=== PATIENT | female | born 1950 | race Hispanic/Latino ===

== ENCOUNTER 2023-12-08 09:20 | Emergency (ER) | payer OTHER ==
[2023-12-08] MEDS ORDERED: LIDOCAINE 2% W/EPI 1:200,000 MPF 20 ML VIAL IM ONE (09:42)
--- NOTE | 2023-12-08 10:06 | EDPHYS ---
Physician Documentation [facility] Name: Negin Brown Age: 73 yrs Sex: Female : 1950 Arrival Date: 12/08/2023 Time: 09:20 Bed 15 Private MD: ED Physician Chemo Cedeno HPI: 12/07 10:07 This 73 yrs old Female presents to ER via Ambulatory with complaints of Boil. ms3 10:07 73-year-old female past medical history of asthma, diabetes, hyperlipidemia, ms3 hypertension, kidney stones presents to the emergency department for painful lump on her back. Patient's niece states patient has had the bump since childhood. Patient states yesterday the bump became painful. Patient states the pain sitting is mild and becomes worse when laying on her back.. Historical: - Allergies: 09:46 No Known Allergies; ap3 - PMHx: 09:46 Asthma; Diabetes - NIDDM; Hyperlipidemia; Hypertension; Kidney stones; lithotripsy; ap3 - PSHx: 09:46 Cholecystectomy; hernia repair; ap3 - Infectious Disease History:: Denies. - Social history:: Smoking status: Patient denies any tobacco usage or history of. ROS: 10:07 Constitutional: Negative for fever, and chills. Neck: Negative for injury, pain, and ms3 swelling, Cardiovascular: Negative for chest pain, and palpitations. Respiratory: Negative for shortness of breath, cough, wheezing, and pleuritic chest pain, Abdomen/GI: Negative for abdominal pain, nausea, vomiting, diarrhea, and constipation, 10:07 Skin: Positive for abscess, Exam: 10:07 Constitutional: This is a well developed, well nourished patient who is awake, alert, ms3 and in no acute distress. Neck: Trachea midline, no cervical lymphadenopathy. Supple, full range of motion without nuchal rigidity, or vertebral point tenderness. No Meningismus. Chest/axilla: Normal chest wall appearance and motion. Nontender with no deformity. Cardiovascular: Regular rate and rhythm with a normal S1 and S2. No gallops, murmurs, or rubs. Normal PMI, no JVD. No pulse deficits. Respiratory: Lungs have equal breath sounds bilaterally, clear to auscultation and percussion. No rales, rhonchi or wheezes noted. No increased work of breathing, no retractions or nasal flaring. Abdomen/GI: Soft, non-tender, with normal bowel sounds. No distension or tympany. No guarding or rebound. No evidence of tenderness throughout. 10:07 Skin: abscess, that is large, of the back, with fluctuance, that is marked, Vital Signs: 09:41 BP 155 / 78; Pulse 80; Resp 17; Temp 97.8; Pulse Ox 98% on R/A; ap3 MDM: 10:05 Patient medically screened. ms3 10:07 Differential diagnosis: abscess, cellulitis, Sebaceous cyst. Data reviewed: vital ms3 signs, nurses notes, and as a result, I will discharge patient. I considered the following discharge prescriptions or medication management in the emergency department Patient given prescription for Keflex. Care significantly affected by the following chronic conditions: Diabetes, Hypertension. Counseling: I had a detailed discussion with the patient and/or guardian regarding the historical points, exam findings, and any diagnostic results supporting the discharge/admit diagnosis, the need for outpatient follow up, to return to the emergency department if symptoms worsen or persist or if there are any questions or concerns that arise at home. Response to treatment: the patient's symptoms have markedly improved after treatment, and as a result, I will discharge patient. Special discussion: I discussed with the patient/guardian in detail that at this point there is no indication for admission to the hospital. It is understood, however, that if the symptoms persist or worsen the patient needs to return immediately for re-evaluation. ED course: Discussed physical exam findings with patient. Incision and drainage performed without complications. Patient to follow-up with Dr. Booth in 2 to 3 days for reevaluation. Patient understands and agrees with plan. All questions were answered. Return precautions discussed include worsening symptoms, or any other concerns.. Administered Medications: No medications were administered Disposition Summary: 12/08/23 10:05 Discharge Ordered Notes: Location: Home ms3 Condition: Stable ms3 Diagnosis - Sebaceous cyst - infected ms3 Followup: ms3 - With: Navin Booth MD - When: 2 - 3 days - Reason: Recheck today's complaints Discharge Instructions: - Discharge Summary Sheet ms3 - Incision and Drainage, Care After ms3 Forms: - Medication Reconciliation Form ms3 - Antibiotic Education ms3 - Prescription Opioid Use ms3 - Patient Portal Instructions ms3 - Leadership Thank You Letter ms3 Prescriptions: - Cephalexin 250 mg Oral Capsule - take 1 capsule ORAL route every 6 hours for 10 days; 40 capsule; Refills: 0, ms3 Product Selection Permitted Signatures: Fannie Oglesby, RN RN ap3 Chemo Cedeno DO DO ms3
--- NOTE | 2023-12-08 10:06 | ER ---
Nurse's Notes [facility] Name: Negin Brown Age: 73 yrs Sex: Female : 1950 Arrival Date: 12/08/2023 Time: 09:20 Bed 15 Private MD: Diagnosis: Sebaceous cyst-infected Presentation: 12/07 09:41 Chief complaint: patient has a "lump" on her back that she has had since childhood, ap3 however it has become painful yesterday when she puts pressure on it. Coronavirus screen: At this time, the client does not indicate any symptoms associated with coronavirus-19. Ebola Screen: No symptoms or risks identified at this time. Initial Sepsis Screen: Does the patient meet any 2 criteria? No. Patient's initial sepsis screen is negative. Does the patient have a suspected source of infection? No. Patient's initial sepsis screen is negative. Risk Assessment: Do you want to hurt yourself or someone else? Patient reports no desire to harm self or others. Onset of symptoms is unknown. 09:41 Method Of Arrival: Ambulatory ap3 09:41 Acuity: JONI 3 ap3 Triage Assessment: 09:47 General: Appears in no apparent distress. Behavior is calm, cooperative, appropriate ap3 for age. Pain: Complains of pain in upper back Pain began 1 day ago. Neuro: Level of Consciousness is awake, alert, obeys commands, Oriented to person, place, time, situation, Speech is normal. Cardiovascular: Patient's skin is warm and dry. Respiratory: Airway is patent Respiratory effort is even, unlabored, Respiratory pattern is regular, symmetrical. Historical: - Allergies: 09:46 No Known Allergies; ap3 - PMHx: 09:46 Asthma; Diabetes - NIDDM; Hyperlipidemia; Hypertension; Kidney stones; lithotripsy; ap3 - PSHx: 09:46 Cholecystectomy; hernia repair; ap3 - Infectious Disease History:: Denies. - Social history:: Smoking status: Patient denies any tobacco usage or history of. Screenin:48 Abuse screen: Denies threats or abuse. Nutritional screening: No deficits noted. ap3 Tuberculosis screening: No symptoms or risk factors identified. 09:50 [facility] ED Fall Risk Assessment (Adult) History of falling in the last 3 months, nj1 including since admission No falls in past 3 months (0 pts) Confusion or Disorientation No (0 pts) Intoxicated or Sedated No (0 pts) Impaired Gait Yes (1 pt) Mobility Assist Device Used Yes (1 pt) Altered Elimination No (0 pt) Score/Fall Risk Level 0 - 2 = Low Risk Oriented to surroundings, Maintained a safe environment, Assessed \\T\\ reinforced patient's understanding of fall precautions, Hourly rounding (assess needs \\T\\ fall precautionary measures) done, Used ambulatory aids as needed (educated on \\T\\ assisted with). Assessment: 09:50 General: Appears in no apparent distress. uncomfortable, Behavior is calm, cooperative, nj1 appropriate for age. Pain: Complains of pain in back Pain at worst was 9 out of 10 on a pain scale. 09:50 Neuro: Level of Consciousness is awake, alert, obeys commands, Oriented to person, nj1 place, time, situation. Cardiovascular: Patient's skin is warm and dry. Respiratory: Airway is patent Respiratory effort is even, unlabored. Derm: Skin has lesions on Lump on the upper back. Vital Signs: 09:41 BP 155 / 78; Pulse 80; Resp 17; Temp 97.8; Pulse Ox 98% on R/A; ap3 ED Course: 09:29 Patient arrived in ED. mg5 09:30 Chemo Cedeno DO is Attending Physician. ms3 09:34 Sophia Sanchez, PAUL is Primary Nurse. nj1 09:46 Triage completed. ap3 09:48 Arm band placed on right wrist. ap3 09:50 Patient has correct armband on for positive identification. Placed in gown. Bed in low nj1 position. Call light in reach. Adult w/ patient. 09:50 Provided Education on: call light, fall precautions. nj1 10:05 Navin Booth MD is Referral Physician. ms3 10:20 Assist provider with I \\T\\ D: of an abscess on Upper back Set up I\\T\\D tray. Performed by nj 1 Chemo Cedeno DO Wound packed. iodoform gauze, Dressing with 4X4s, tape Patient tolerated well. 10:21 Patient did not have IV access during this emergency room visit. nj1 Administered Medications: No medications were administered Medication: 10:22 VIS not applicable for this client. nj1 Outcome: 10:05 Discharge ordered by . ms3 10:21 Discharged to home ambulatory, nj1 10:21 Condition: stable 10:21 Discharge instructions given to patient, family, Instructed on discharge instructions, follow up and referral plans. medication usage, wound care, Demonstrated understanding of instructions, follow-up care, medications, wound care, Prescriptions given X 1, 10:22 Patient left the ED. nj1 Signatures: Fannie Oglesby RN RN ap3 Chemo Cedeno DO DO ms3 Sophia Sanchez RN RN nj1 Jennifer Chavis 5
[2023-12-08 10:28] VITALS: BP 155/78; TEMP 97.8; O2SAT 98
== END 2023-12-08 10:22 | disposition home or self-care (01) ==
LOC: ER 09:20
DX: L72.3 Sebaceous cyst (principal); E11.9 Type 2 diabetes mellitus without complications; I10 Essential (primary) hypertension; E78.5 Hyperlipidemia, unspecified; J45.909 Unspecified asthma, uncomplicated
CPT/HCPCS: 99283

== ENCOUNTER 2023-12-20 08:38 | Day surgery (SDC) | payer OTHER ==
--- NOTE | 2023-12-17 16:20 | RAD REPORT ---
EXAM DESCRIPTION: RAD - Chest Single View - 12/17/2023 4:15 pm CLINICAL HISTORY: preop Chest pain. COMPARISON: <Comparisons> FINDINGS: Portable technique limits examination quality. The lungs are grossly clear. The heart is mildly enlarged in size. No displaced fractures. IMPRESSION: No acute intrathoracic process suspected.
[2023-12-17 16:58] LABS: Absolute Eosinophils 0.2 K/uL (0-0.5); Absolute Lymphocytes (CBC) 1.3 K/uL (0.7-4.9); Absolute Monocytes 0.4 K/uL (0.1-1.3); Absolute Neutrophil 5.3 K/uL (1.8-8.0); Basophils % 0.5 % (0-1.3); Eosinophils % 2.9 % (0-4.4); Hematocrit 37.8 % (36.0-45.0); Hemoglobin 12.8 g/dL (12.0-15.0); Lymphocytes % 18.4 % (15.3-44.8); MCH 30.4 pg (27.0-35.0); MCHC 33.9 g/dL (32.0-36.0); MCV 89.8 fL (80-100); MPV 7.7 fL (7.6-11.3); Monocytes % 5.3 % (3.3-12.3); Neutrophils % 72.9 % (41.7-73.7); Nucleated Red Blood Cells % 0.2 % (0-0); Platelets 293 thou/uL (152-406); RBC Red Blood Cell Count 4.21 M/uL (3.86-4.86); Red Cell Distribution Width 12.9 % (12.1-15.2)
[2023-12-17 17:08] LABS: Anion Gap 7.8 mEq/L (5.0-15.0); Potassium 3.8 mEq/L (3.5-5.1)
--- NOTE | 2023-12-19 13:32 | EKG ---
Test Date: 2023-12-17 Test Time: 16:06:59 Test Architect: MEASUREMENT RESULTS: Intervals: Rate: 77 NH: 206 QRSD: 82 QT: 388 QTc: 439 [place]: P: 22 NH: 206 QRS: -25 T: -7 INTERPRETIVE STATEMENTS: Normal sinus rhythm Normal ECG Compared to ECG 07/27/2017 00:36:11 No significant changes Electronically Signed On 12-19-23 13:27:51 CDT by Dane Basilio
[2023-12-20] MEDS: NA CHLORIDE 0.9% 1,000 ML ONE (09:26)
[2023-12-20] MEDS ORDERED: LIDOCAINE 1% MPF 5 ML VIAL ONE (10:01)
[2023-12-20] MEDS ORDERED: MIDAZOLAM HCL 2 MG/2 ML INJ ONE (10:02)
[2023-12-20] MEDS ORDERED: FENTANYL CITR 100 MCG/2 ML ONE (10:02)
[2023-12-20] MEDS ORDERED: propofoL 200 MG/20 ML VIAL IV ONE (10:02)
[2023-12-20] MEDS: CEFAZOLIN SODIUM 1 GM/VIAL ONE (10:30)
[2023-12-20] MEDS ORDERED: ONDANSETRON 4 MG/2 ML VIAL ONE (10:41)
--- NOTE | 2023-12-20 11:16 | P.BOP ---
Preoperative diagnosis: infected back subQ mass Postoperative diagnosis: same Primary procedure: Excisional biopsy of infected back subQ mass 4x4cm Estimated blood loss: <10c Specimen: mass, culture Findings: as above Anesthesia: General Complications: None Transferred to: Recovery Room Condition: Good
[2023-12-20] MEDS: CODEINE 30MG/APAP 300MG TAB ONE (12:38)
[2023-12-20 13:37] VITALS: BP 129/55; TEMP 97; O2SAT 98
== END 2023-12-20 13:05 | disposition home or self-care (01) ==
LOC: OR 08:38
PROVIDERS: ATTEND Surgery
PROC: 0JB70ZZ Excision of Back Subcutaneous Tissue and Fascia, Open Approach (ICD-10-PCS; principal; 2023-12-20 10:45)
DX: L72.0 Epidermal cyst (principal); L08.9 Local infection of the skin and subcutaneous tissue, unspecified
CPT/HCPCS: 93005; 87070; 85025; 80048; 36415; 87205; 82947; 88305; 87075; 71045; 11404; J2704; J2001; J2250; J3010; J2405; J7030; J0690; 88304